=== PATIENT | male | born 1990 | race Caucasian/White ===

== ENCOUNTER 2025-03-15 17:38 | Emergency (ER) | payer OTHER ==
[2025-03-15] MEDS: Lidocaine 1% with EPINEPHrine 1:100,000 20 ML MDV INJECT ONE (18:41)
[2025-03-15] MEDS: Bacitracin Oint 1 GM U/D Packet TOP ONE (18:44)
[2025-03-15] MEDS: Diphtheria,Pertussis(Acell),Tetanus Vaccine 0.5 ML Syringe IM ONE (18:45)
== END 2025-03-15 19:04 | disposition home or self-care (01) ==
LOC: JP.ED 17:38
DX: S61.412A Laceration without foreign body of left hand, initial encounter (principal); Z23 Encounter for immunization; W26.0XXA Contact with knife, initial encounter
CPT/HCPCS: 12002; 73130; 90471; 90715; 99283; A4217; A9270; J2004; 12042